=== PATIENT | female | born 1935 | race Caucasian/White ===

== ENCOUNTER 2016-11-29 11:28 | Day surgery (SDC) | payer MEDICARE, MEDICAID ==
[~2016-11-29 11:28] MED LIST: ACETAMINOPHEN 1000MG/100 ML PREMIX IV ONE
[2016-11-29] MEDS ORDERED: PROPOFOL 10 MG/ML VIAL IV ONE (14:00)
[2016-11-29] MEDS ORDERED: EPHEDRINE SULFATE 50 MG/ML ML IV ONE (14:00)
[2016-11-29] MEDS ORDERED: SEVOFLURANE 250 ML INH ONE (14:00)
[2016-11-29] MEDS ORDERED: LIDOCAINE 2% MDV (20MG/ML) 20ML VIAL IV ONE (14:00)
--- NOTE | 2016-12-01 09:34 | Operative Note ---
DATE OF SURGERY: 11/29/2016. SURGEON: Rey Whitehead D.O. REFERRING PHYSICIAN: Russell Duarte M.D. PREOPERATIVE DIAGNOSIS: GANGLION OF THE LEFT PALM. POSTOPERATIVE DIAGNOSIS: SOFT TISSUE MASS, LEFT PALM, 1.5 CM. OPERATIVE PROCEDURE: Excision of soft tissue mass, left palm, 1.5 cm. DESCRIPTION OF PROCEDURE: This 81-year-old female was taken to the operating room and was placed in the supine position on the operating room table. A general anesthetic was administered, and the left upper extremity was elevated. It was prepped with Hibiclens and draped in the usual sterile fashion. It was exsanguinated and the tourniquet was inflated to 250 mm Hg. A longitudinal incision was made over the dome of this mass which was just proximal to the proximal edge of the A1 meche. Dissection was carried down through the skin and subcutaneous tissue. Immediate mass of fibrous tissue was identified. I did not see any evidence of a ganglion cyst which I anticipated was going to be coming from the A1 meche. This was a solid mass, whitish in color. Circumferential excision was performed. It almost appeared to be consistent with a fibrous type mass that would be consistent with fibrosis of the palmar fascia from Dupuytren's contracture. Once this had been completely excised, the flexor tendons appeared to be entirely normal. The wound was irrigated with lactated ringers solution. Hemostasis was obtained with the electrocautery. The mass was sent to Pathology. The wound was closed with interrupted 6-0 nylon suture. Sterile dressings were applied, and the patient was taken to the recovery room in satisfactory condition. GROSS PATHOLOGY: This patient demonstrated a soft tissue mass of the palm which appeared to be fibrous in nature and was clearly not a ganglion cyst as anticipated preoperatively. Rey Whitehead D.O. Date Time Job Number: [id number] [facility]
== END 2016-11-29 14:20 | disposition home or self-care (01) ==
LOC: SUR 11:28
PROVIDERS: ATTEND Orthopaedic Surgery
DX: M67.442 Ganglion, left hand (principal)